=== PATIENT | male | born 1985 | race Caucasian/White ===

== ENCOUNTER 2016-12-08 15:15 | Emergency (ER) | payer OTHER | END 2016-12-08 16:50 | disposition home or self-care (01) | LOC: FER 15:15 | DX: S63.502A Unspecified sprain of left wrist, initial encounter (principal); M79.641 Pain in right hand; X50.0XXA Overexertion from strenuous movement or load, initial encounter; Y93.B2 Activity, push-ups, pull-ups, sit-ups; Y92.098 Other place in other non-institutional residence as the place of occurrence of the external cause | CPT/HCPCS: J1885 ==